=== PATIENT | male | born 1950 | race Caucasian/White ===

== ENCOUNTER 2018-08-24 09:15 | Inpatient (IN) | payer MEDICARE, BC ==
[2018-09-07] MEDS ORDERED: Sodium Chloride 0.9% 10 ML Syringe FLUSH PRN (00:01)
[2018-09-07] MEDS ORDERED: Lactated Ringers 1,000 ML IV SCH (00:01)
[2018-09-07] MEDS ORDERED: Lidocaine 1%/Sod Bicarbonate in NS 8.4% 1 ML Syringe IDERM PRN (00:01)
[2018-09-07] MEDS ORDERED: Acetaminophen 325 MG Tab PO SCH (06:00)
[2018-09-07] MEDS ORDERED: Pregabalin 25 MG Cap PO SCH (06:00)
[2018-09-07] MEDS ORDERED: oxyCODONE ER 10 MG TAB.ER PO ONE (07:00)
[2018-09-07] MEDS ORDERED: Cyclobenzaprine 10 MG Tab PO PRN (07:07)
[2018-09-07] MEDS ORDERED: Vancomycin 1 GM SDV ONE (07:08)
[2018-09-07] MEDS ORDERED: ceFAZolin 1 GM Vial ONE ×2 (07:08)
[2018-09-07] MEDS ORDERED: Morphine 2 MG/ML Syringe IVPUSH PRN (07:08)
[2018-09-07] MEDS ORDERED: Midazolam 1 MG/ML 2 ML SDV ONE (07:08)
[2018-09-07] MEDS ORDERED: Bupivacaine 0.25% 30 ML SDV ONE (07:08)
[2018-09-07] MEDS ORDERED: fentaNYL 100 MCG/2 ML SDV ONE (07:08)
[2018-09-07] MEDS ORDERED: Iodine/Sodium Iodide 2% Tincture 30 ML Bottle ONE (07:08)
[2018-09-07] MEDS ORDERED: Lactated Ringers 1,000 ML ONE (07:08)
[2018-09-07] MEDS ORDERED: Ondansetron 4 MG/2 ML SDV ONE (07:08)
[2018-09-07] MEDS ORDERED: Naloxone 0.4 MG/ML SDV IVPUSH PRN (07:08)
[2018-09-07] MEDS ORDERED: Ondansetron 4 MG/2 ML SDV IVPUSH PRN (07:08)
[2018-09-07] MEDS ORDERED: Propofol 200 MG/20 ML SDV ONE ×3 (07:08→09:22)
[2018-09-07] MEDS ORDERED: Sennosides 8.6 MG Tab PO PRN (07:08)
[2018-09-07] MEDS ORDERED: Bisacodyl 5 MG Tab PO PRN (07:08)
[2018-09-07] MEDS ORDERED: Magnesium Hydroxide 400 MG/5 ML Susp 30 ML Cup PO PRN (07:08)
--- NOTE | 2018-09-07 07:23 | PCM.PREANE ---
Preanesthetic Assessment - Anesthesia/Transfusion/Family Hx Anesthesia History: No Prior Anesthesia Family History of Anesthesia Reaction: No Transfusion History: No Prior Transfusion(s) - Review of Systems General: No Symptoms, Other (drinks 2 alcohol drinks per day) Pulmonary: No Symptoms Cardiovascular: Other (HTN) Gastrointestinal: No Symptoms Neurological: Other (chronic low back) Other: Reports: None - Physical Assessment NPO Status Date: 09/06/18 NPO Status Time: 19:00 Pulse: 65 O2 Sat by Pulse Oximetry: 100 Respiratory Rate: 16 Blood Pressure: 144/88 Vital Signs: Last Vital Signs Temp 36.2 C 09/07/18 07:00 Pulse 65 09/07/18 07:00 Resp 16 09/07/18 07:00 BP 144/88 H 09/07/18 07:00 Pulse Ox 100 09/07/18 07:00 Weight: 90.1 kg ASA Class: 2 Mental Status: Alert & Oriented x3 Airway Class: Mallampati = 2 Dentition: Reports: Normal Dentition Thyro-Mental Finger Breadths: 3 Mouth Opening Finger Breadths: 3 ROM/Head Extension: Full Lungs: Clear to Auscultation, Normal Respiratory Effort Cardiovascular: Regular Rate, Regular Rhythm - Lab Values: Laboratory Last Values MRSA (PCR) Negative 08/25/18 09:10 - Imaging/EKG Impressions: SR - Allergies Allergies/Adverse Reactions: Allergies Allergy/AdvReac Type Severity Reaction Status Date / Time No Known Allergies Allergy Verified 09/04/18 13:00 - Blood Blood Available: No Product(s) Available: None - Anesthesia Plan Pre-Op Medication Ordered: None - Acknowledgements Anesthesia Type Planned: Spinal Pt an Appropriate Candidate for the Planned Anesthesia: Yes Alternatives and Risks of Anesthesia Discussed w Pt/Guardian: Yes Pt/Guardian Understands and Agrees with Anesthesia Plan: Yes PreAnesthesia Questionnaire Cardiovascular History: Reports: High Cholesterol, Hypertension Respiratory History: Reports: None Gastrointestinal History: Reports: Other (See Below) Other Gastrointestinal History: abdominal pain and bloating Genitourinary History: Reports: Other (See Below) Other Genitourinary History: erectile dysfunction RESIDENTIAL APPRAISER History: Reports: None Musculoskeletal History: Reports: Other (See Below) Other Musculoskeletal History: low back pain, left hip and knee pain, right shoulder injury Neurological History: Reports: None Psychiatric History: Reports: None Endocrine/Metabolic History: Reports: None Hematologic History: Reports: None Immunologic History: Reports: None Oncologic (Cancer) History: Reports: None Dermatologic History: Reports: None - Past Surgical History Head Surgeries/Procedures: Reports: None HEENT Surgical History: Reports: Cataract Surgery, Oral Surgery Cardiovascular Surgical History: Reports: None Respiratory Surgical History: Reports: None GI Surgical History: Reports: None Female Surgical History: Reports: None Male Surgical History: Reports: None Endocrine Surgical History: Reports: None Neurological Surgical History: Reports: None Musculoskeletal Surgical History: Reports: None Oncologic Surgical History: Reports: None Dermatological Surgical History: Reports: None - SUBSTANCE USE Smoking Status *Q: Never Smoker Second Hand Smoke Exposure: No Days Per Week of Alcohol Use: 7 Number of Drinks Per Day: 2 Total Drinks Per Week: 14 Recreational Drug Use History: No - HOME MEDS Home Medications: Home Meds . [No Known Home Meds] 09/04/18 [History] - CURRENT (IN HOUSE) MEDS Current Meds: Current Medications Acetaminophen (Tylenol) 975 mg PO ONETIME HEIDE Stop: 09/07/18 12:00 Last Admin: 09/07/18 07:09 Dose: 975 mg Bisacodyl (Dulcolax) 5 mg PO DAILY PRN PRN Reason: Constipation Morphine Sulfate 8 mg/Epinephrine HCl 0.3 mg/Cefuroxime Sodium 750 mg/Ketorolac Tromethamine 30 mg/Sodium Chloride 27.9 ml 0 mg .XX ONETIME ONE Stop: 09/07/18 07:08 Cyclobenzaprine HCl (Flexeril) 10 mg PO BID PRN PRN Reason: Spasms Docusate Sodium (Colace) 100 mg PO BID HEIDE Famotidine (Pepcid) 20 mg PO Q12H [facility] Lactated Ringer's (Ringers, Lactated) 1,000 mls @ 125 mls/hr IV ASDIRECTED HEIDE Stop: 09/07/18 23:00 Cefazolin Sodium/Dextrose 2 gm (/ Premix) 50 mls @ 100 mls/hr IV Q8H HEIDE Stop: 09/07/18 23:44 Ketorolac Tromethamine (Toradol) 15 mg IVPUSH Q6H PRN PRN Reason: Pain Lidocaine/Sodium Bicarbonate (Buffered Lidocaine 1% In Ns 8.4%) 0.25 ml IDERM ONETIME PRN PRN Reason: Prior to IV Start Stop: 09/07/18 18:00 Magnesium Hydroxide (Milk Of Magnesia) 30 ml PO BID PRN PRN Reason: Constipation Morphine Sulfate (Morphine) 2 mg IVPUSH Q2H PRN PRN Reason: Breakthrough Pain Naloxone HCl (Narcan) 0.1 mg IVPUSH Q5M PRN PRN Reason: Oversedation Ondansetron HCl (Zofran) 4 mg IVPUSH Q6H PRN PRN Reason: Nausea/Vomiting Oxycodone/Acetaminophen (Percocet 325-5 Mg) 1 - 2 tab PO Q4H PRN PRN Reason: Pain Pregabalin (Lyrica) 50 mg PO ONETIME HEIDE Stop: 09/07/18 12:00 Last Admin: 09/07/18 07:09 Dose: 50 mg Rivaroxaban (Xarelto) 10 mg PO DAILY HEIDE Senna (Senna) 8.6 mg PO BID PRN PRN Reason: Constipation Sodium Chloride (Saline Flush) 10 ml FLUSH ASDIRECTED PRN PRN Reason: Keep Vein Open Stop: 09/07/18 18:00 Discontinued Medications Bupivacaine HCl (Marcaine 0.25%) Confirm Administered Dose 30 ml .ROUTE .STK- MED ONE Stop: 09/07/18 07:09 Cefazolin Sodium (Ancef) Confirm Administered Dose 2 gm .ROUTE .STK-MED ONE Stop: 09/07/18 07:09 Cefazolin Sodium (Ancef) Confirm Administered Dose 2 gm .ROUTE .STK-MED ONE Stop: 09/07/18 07:09 Fentanyl (Sublimaze) Confirm Administered Dose 100 mcg .ROUTE .STK-MED ONE Stop: 09/07/18 07:09 Lactated Ringer's (Ringers, Lactated) Confirm Administered Dose 1,000 mls @ as directed .ROUTE .STK-MED ONE Stop: 09/07/18 07:09 Iodine (Iodine 2% Mild Tincture) Confirm Administered Dose 30 ml .ROUTE .STK- MED ONE Stop: 09/07/18 07:09 Midazolam HCl (Versed 1 Mg/Ml) Confirm Administered Dose 2 mg .ROUTE .STK-MED ONE Stop: 09/07/18 07:09 Ondansetron HCl (Zofran) Confirm Administered Dose 4 mg .ROUTE .STK-MED ONE Stop: 09/07/18 07:09 Oxycodone HCl (Oxycontin) 10 mg PO ONETIME ONE Stop: 09/07/18 07:01 Last Admin: 09/07/18 07:08 Dose: 10 mg Propofol (Diprivan 20 Ml) Confirm Administered Dose 600 mg .ROUTE .STK-MED ONE Stop: 09/07/18 07:09 Tranexamic Acid (Cyklokapron) Confirm Administered Dose 1,000 mg .ROUTE .STK- MED ONE Stop: 09/07/18 07:09 Vancomycin HCl (Vancomycin) Confirm Administered Dose 1 gm .ROUTE .STK-MED ONE Stop: 09/07/18 07:09
[2018-09-07] MEDS ORDERED: Morphine PF 10 MG/10 ML SDV ONE (07:43)
[2018-09-07] MEDS ORDERED: Phenylephrine/Normal Saline 100 MCG/ML 10 ML Syringe ONE (08:50)
[2018-09-07] MEDS ORDERED: ePHEDrine/Normal Saline 25 MG/5 ML Syringe ONE (08:56)
[2018-09-07] MEDS ORDERED: Ketorolac 15 MG/ML SDV IVPUSH PRN (09:00)
[2018-09-07] MEDS: Morphine 8 MG, EPINEPHrine 0.3 MG, Cefuroxime 750 MG, Ketorolac 30 MG, Sodium Chloride ... ONE ×10 (09:49→13:09)
[2018-09-07] MEDS ORDERED: Ketorolac 30 MG/ML SDV ONE (09:55)
--- NOTE | 2018-09-07 10:25 | PCM.POSTAN ---
POST ANESTHESIA ASSESSMENT - MENTAL STATUS Mental Status: Alert, Oriented - VITAL SIGNS Pulse Rate: 66 SaO2: 97 Resp Rate: 17 Blood Pressure: 116/97 Temperature: 36.6 C - RESPIRATORY Respiratory Status: Respiratory Rate WNL, Airway Patent, O2 Saturation Stable, Supplemental Oxygen - CARDIOVASCULAR CV Status: Pulse Rate WNL, Blood Pressure Stable - GASTROINTESTINAL GI Status: No Symptoms - PAIN Pain Score: 0 - POST OP HYDRATION Hydration Status: Adequate & Stable
[2018-09-07] MEDS ORDERED: fentaNYL 100 MCG/2 ML SDV IVPUSH PRN (10:26)
--- NOTE | 2018-09-07 11:06 | CR ---
Pelvis and left hip: AP view of the pelvis was obtained as well as lateral view of the left hip. Comparison: Prior left hip exam of 09/10/17. Left hip prosthesis is seen. Components are aligned. Underlying bony structures are intact. Bony structures are osteopenic. Soft tissue air is noted. Severe degenerative change is noted within the right hip. Impression: 1. Satisfactory appearance of recently placed left hip prosthesis. 2. Severe degenerative change seen within the right hip. Diagnostic code #3
--- NOTE | 2018-09-07 11:29 | PCM.OPNOTE ---
- General Post-Op/Procedure Note Date of Surgery/Procedure: 09/07/18 Operative Procedure(s): left total hip arthroplasty Pre Op Diagnosis: left hip osteoarthritis Post-Op Diagnosis: Same Anesthesia Technique: Local, MAC, Spinal Primary Surgeon: Taiwo Sosa Anesthesia Provider: Laurie Purdy Weatherization Operations Manager: Carole Chambelrain Weatherization Operations Manager: Kristen Salmon EBTai in mLs: 250 Complications: None Condition: Good Free Text/Narrative:: Intake & Output 09/06/18 09/07/18 09/07/18 22:59 06:59 14:59 Intake Total 100 Balance 100 58 cup size 6 stem 36+0
[2018-09-07] MEDS: Famotidine 20 MG Tab PO SCH ×2 (13:09→18:39)
--- NOTE | 2018-09-07 16:22 | PCM.CONS ---
H&P History of Present Illness - General Date of Service: 09/07/18 Admit Problem/Dx: Admission Diagnosis/Problem Admission Diagnosis/Problem Osteoarthritis of hip Source of Information: Patient, Old Records, Provider, RN, RN Notes Reviewed History Limitations: Reports: No Limitations - History of Present Illness Initial Comments - Free Text/Narative: Dar Fonseca is a 68 yo male patient of Dr. Sosa who is post-operative day 0 of left TIAN. Hospital medicine was consulted for post-operative medical care of the following listed medical conditions. At this time he is resting comfortably in bed. Pain is controlled. He denies any chest pain, shortness of breath, palpitations, nausea, or vomiting. He carries a history of: Chronic low back pain, HLD, elevated BP without HTN diagnosis, Elevated blood sugars without diabetes diagnosis. He is a former smoker. He is a full code. His primary care provider is Reid Baer PA-C. Left Hip Pain Score (Numeric/FACES): 3 - Related Data Allergies/Adverse Reactions: Allergies Allergy/AdvReac Type Severity Reaction Status Date / Time No Known Allergies Allergy Verified 09/04/18 13:00 Home Medications: Home Meds . [No Known Home Meds] 09/04/18 [History] Past Medical History Cardiovascular History: Reports: High Cholesterol, Hypertension Respiratory History: Reports: Asthma Gastrointestinal History: Reports: Other (See Below) Other Gastrointestinal History: abdominal pain and bloating Genitourinary History: Reports: Other (See Below) Other Genitourinary History: erectile dysfunction INVENTORY AND PRICING ASSOCIATE History: Reports: None Musculoskeletal History: Reports: Other (See Below) Other Musculoskeletal History: low back pain, left hip and knee pain Neurological History: Reports: None Psychiatric History: Reports: None Endocrine/Metabolic History: Reports: None Hematologic History: Reports: None Immunologic History: Reports: None Oncologic (Cancer) History: Reports: None Dermatologic History: Reports: None - Past Surgical History Head Surgeries/Procedures: Reports: None HEENT Surgical History: Reports: Cataract Surgery, Oral Surgery Cardiovascular Surgical History: Reports: None Respiratory Surgical History: Reports: None GI Surgical History: Reports: None Male Surgical History: Reports: None Endocrine Surgical History: Reports: None Neurological Surgical History: Reports: None Musculoskeletal Surgical History: Reports: None Oncologic Surgical History: Reports: None Dermatological Surgical History: Reports: None Social & Family History - Tobacco Use Smoking Status *Q: Never Smoker Second Hand Smoke Exposure: No - Caffeine Use Caffeine Use: Reports: None - Alcohol Use Days Per Week of Alcohol Use: 7 Number of Drinks Per Day: 2 Total Drinks Per Week: 14 - Recreational Drug Use Recreational Drug Use: No H&P Review of Systems - Review of Systems: Review Of Systems: See Below General: Reports: No Symptoms. Denies: Fever, Chills HEENT: Reports: No Symptoms. Denies: Headaches, Sore Throat Pulmonary: Reports: No Symptoms. Denies: Shortness of Breath, Wheezing, Cough, Sputum Cardiovascular: Reports: No Symptoms. Denies: Chest Pain, Palpitations, Dyspnea on Exertion Gastrointestinal: Reports: No Symptoms. Denies: Abdominal Pain, Constipation, Diarrhea, Nausea, Vomiting Genitourinary: Reports: No Symptoms. Denies: Pain Musculoskeletal: Reports: No Symptoms Skin: Reports: No Symptoms. Denies: Cyanosis Psychiatric: Reports: No Symptoms. Denies: Confusion Neurological: Reports: No Symptoms. Denies: Pre-Existing Deficit Hematologic/Lymphatic: Reports: No Symptoms Immunologic: Reports: No Symptoms Exam - Exam Exam: See Below - Vital Signs Vital Signs: Last Vital Signs Temp 98.1 F 09/07/18 11:00 Pulse 62 09/07/18 14:31 Resp 19 09/07/18 11:00 BP 111/65 09/07/18 14:31 Pulse Ox 97 09/07/18 14:31 Weight: 198 lb - Exam Quality Assessment: DVT Prophylaxis. No: Supplemental Oxygen, Urinary Catheter General: Alert, Oriented, Cooperative. No: Mild Distress HEENT: Conjunctiva Clear, EACs Clear, EOMI, Hearing Intact, Mucosa Moist & Horine , Nares Patent, Posterior Pharynx Clear, PERRLA Neck: Supple, Trachea Midline Lungs: Clear to Auscultation, Normal Respiratory Effort Cardiovascular: Regular Rate, Regular Rhythm GI/Abdominal Exam: Normal Bowel Sounds, Soft, Non-Tender, No Distention, No Abnormal Bruit (Male) Exam: Deferred Rectal (Males) Exam: Deferred Back Exam: Normal Inspection, Full Range of Motion Extremities: No Pedal Edema, Normal Capillary Refill, Leg Pain, Limited Range of Motion, Other (Bandage in place on left leg. Bandage is dry and intact. Cooling pack in place. ) Peripheral Pulses: 2+: Radial (L), Radial (R), Dorsalis Pedis (L), Dorsalis Pedis (R) Skin: Warm, Dry, Intact Neurological: Cranial Nerves Intact (Grossly ) Neuro Extensive - Mental Status: Alert, Oriented x3 - Patient Data Lab Results Last 24 hrs: Laboratory Results - last 24 hr 09/07/18 Range/Units 07:01 Blood Type O NEGATIVE Gel Antibody Screen Negative Consult PN Assessment/Plan POD#: 0 Procedures: Procedures ASSAY OF PREALBUMIN (08/19/18) ASSAY OF SERUM ALBUMIN (08/19/18) COMPLETE CBC AUTOMATED (09/21/15) COMPLETE CBC W/AUTO DIFF WBC (08/19/18) COMPREHEN METABOLIC PANEL (04/02/16) DXA BONE DENSITY AXIAL (08/31/18) ELECTROCARDIOGRAM TRACING (08/19/18) GLYCOSYLATED HEMOGLOBIN TEST (09/10/17) LIPID PANEL (09/10/17) METABOLIC PANEL TOTAL CA (08/19/18) OFFICE/OUTPATIENT VISIT EST (08/19/18) OFFICE/OUTPATIENT VISIT EST (07/03/16) PROTHROMBIN TIME (08/19/18) ROUTINE VENIPUNCTURE (08/19/18) THROMBOPLASTIN TIME PARTIAL (08/19/18) X-RAY EXAM ABDOMEN 2 VIEWS (03/19/18) X-RAY EXAM CHEST 2 VIEWS (08/19/18) X-RAY EXAM HIP UNI 2-3 VIEWS (09/10/17) X-RAY EXAM KNEE 4 OR MORE (07/03/16) X-RAY EXAM L-S SPINE 2/3 VWS (07/03/16) X-RAY EXAM OF KNEE 3 (09/10/17) (1) S/P total hip arthroplasty SNOMED Code(s): 085218143692, 756082437045 Code(s): Z96.649 - PRESENCE OF UNSPECIFIED ARTIFICIAL HIP JOINT Priority: High Current Visit: Yes Qualifiers: Laterality: left Qualified Code(s): Z96.642 - Presence of left artificial hip joint (2) Osteoarthritis SNOMED Code(s): 712181705 Code(s): M19.90 - UNSPECIFIED OSTEOARTHRITIS, UNSPECIFIED SITE Priority: High Current Visit: Yes Qualifiers: Osteoarthritis location: hip Osteoarthritis type: primary Laterality: left Qualified Code(s): M16.12 - Unilateral primary osteoarthritis, left hip (3) HLD (hyperlipidemia) SNOMED Code(s): 26817294 Code(s): E78.5 - HYPERLIPIDEMIA, UNSPECIFIED Priority: Low Current Visit : No Qualifiers: Hyperlipidemia type: unspecified Qualified Code(s): E78.5 - Hyperlipidemia , unspecified (4) HTN (hypertension) SNOMED Code(s): 61572255 Code(s): I10 - ESSENTIAL (PRIMARY) HYPERTENSION Priority: Low Current Visit: No Qualifiers: Hypertension type: unspecified Qualified Code(s): I10 - Essential (primary ) hypertension (5) Chronic low back pain SNOMED Code(s): 223108058 Code(s): M54.5 - LOW BACK PAIN; G89.29 - OTHER CHRONIC PAIN Priority: Low Current Visit: No Qualifiers: Back pain laterality: unspecified Sciatica presence: unspecified whether sciatica present Qualified Code(s): M54.5 - Low back pain; G89.29 - Other chronic pain (6) Bradycardia following surgery SNOMED Code(s): 40843529 Code(s): I97.89 - OTH POSTPROC COMP AND DISORDERS OF THE CIRC SYS, NEC Priority: High Current Visit: Yes Problem List Initiated/Reviewed/Updated: Yes Plan: I/P: Acute: S/P left total hip arthroplasty - post-operative day 0 -DVT prophylaxis and pain management per primary care team -PT/OT -IS/RT -Monitor oxygen saturation -Titrate oxygen as needed -Home medications reviewed -Vital signs stable -Monitor labs -Pre-operative Hgb was 14.8 -Pre-operative GFR was >60 -Pre-operative BUN 19 -Pre-operative EKG showed NSR Osteoarthritis of left hip -Pain management per primary care team Bradycardia following surgery -HR in upper 40's to low 50's -Asymptomatic -Resolved on floor Chronic: Chronic low back pain HLD Elevated blood pressure without HTN diagnosis Elevated blood sugars without DM diagnosis Plan: CM for discharge planning GI prophylaxis Home medications as indicated Other orders as listed above Routine AM labs He is a full code. His PCP is Reid Baer PA-C Thank you for allowing us to participate in the care of this patient!! Requesting Provider: Dr. Sosa Date Consult Requested: 09/07/18 Patient History Reviewed: Yes Admission H&P Reviewed: Yes Time Spent (in minutes): 35
[2018-09-07] MEDS: ceFAZolin 2 GM in Premix Bag 1 BAG IV SCH (16:49)
[2018-09-07] MEDS: Acetaminophen/oxyCODONE 325-5 MG Tab PO PRN (18:38)
[2018-09-07] MEDS: Docusate Sodium 100 MG Cap PO SCH (21:15)
[2018-09-08] MEDS: Acetaminophen/oxyCODONE 325-5 MG Tab PO PRN (06:29)
[2018-09-08] MEDS: Famotidine 20 MG Tab PO SCH (06:29)
[2018-09-08] MEDS: Docusate Sodium 100 MG Cap PO SCH (08:16)
[2018-09-08] MEDS: ceFAZolin 2 GM in Premix Bag 1 BAG IV SCH ×3 (08:16)
--- NOTE | 2018-09-08 08:29 | PCM.SURGPN ---
- General Info Date of Service: 09/08/18 POD#: 1 Functional Status: Reports: Pain Controlled, Tolerating Diet, Ambulating, Urinating, Incentive Spirometry, Other (The pt remains with O2 use this morning. ) - Patient Data Vitals - Most Recent: Last Vital Signs Temp 99.0 F 09/08/18 08:04 Pulse 79 09/08/18 08:04 Resp 16 09/08/18 08:04 BP 117/70 09/08/18 08:04 Pulse Ox 99 09/08/18 08:04 Weight - Most Recent: 203 lb 12.8 oz I&O - Last 24 Hours: Intake & Output 09/07/18 09/08/18 09/08/18 22:59 06:59 14:59 Intake Total 1100 950 Output Total 200 850 Balance 900 100 Lab Results Last 24 Hrs: Laboratory Results - last 24 hr 09/08/18 09/08/18 Range/Units 04:12 04:12 WBC 5.73 (4.23-9.07) K/mm3 RBC 3.99 L (4.63-6.08) M/mm3 Hgb 12.8 L D (13.7-17.5) gm/L Hct 38.0 L (40.1-51.0) % MCV 95.2 H (79.0-92.2) fl MCH 32.1 (25.7-32.2) pg MCHC 33.7 (32.2-35.5) g/dl RDW Std Deviation 44.0 H (35.1-43.9) fL Plt Count 134 L (163-337) K/mm3 MPV 10.5 (9.4-12.3) fl Sodium 137 (136-145) mEq/L Potassium 4.5 (3.5-5.1) mEq/L Chloride 105 (98-107) mEq/L Carbon Dioxide 27 (21-32) mEq/L Anion Gap 9.5 (5-15) BUN 15 (7-18) mg/dL Creatinine 0.9 (0.7-1.3) mg/dL Est Cr Clr Drug Dosing 87.42 mL/min Estimated GFR (MDRD) > 60 (>60) mL/min BUN/Creatinine Ratio 16.7 (14-18) Glucose 105 (80-115) mg/dL Calcium 8.4 L (8.5-10.1) mg/dL Total Bilirubin 0.8 (0.2-1.0) mg/dL AST 36 (15-37) U/L ALT 30 (16-63) U/L Alkaline Phosphatase 59 (46-116) U/L Total Protein 5.5 L (6.4-8.2) g/dl Albumin 2.9 L (3.4-5.0) g/dl Globulin 2.6 gm/dL Albumin/Globulin Ratio 1.1 (1-2) Med Orders - Current: Current Medications Bisacodyl (Dulcolax) 5 mg PO DAILY PRN PRN Reason: Constipation Cyclobenzaprine HCl (Flexeril) 10 mg PO BID PRN PRN Reason: Spasms Docusate Sodium (Colace) 100 mg PO BID [facility] Last Admin: 09/08/18 08:16 Dose: 100 mg Famotidine (Pepcid) 20 mg PO Q12H [facility] Last Admin: 09/08/18 06:29 Dose: 20 mg Cefazolin Sodium/Dextrose 2 gm (/ Premix) 50 mls @ 100 mls/hr IV Q8H [facility] Stop: 09/08/18 08:29 Last Admin: 09/08/18 08:16 Dose: 100 mls/hr Ketorolac Tromethamine (Toradol) 15 mg IVPUSH Q6H PRN PRN Reason: Pain Last Admin: 09/08/18 00:01 Dose: 15 mg Magnesium Hydroxide (Milk Of Magnesia) 30 ml PO BID PRN PRN Reason: Constipation Morphine Sulfate (Morphine) 2 mg IVPUSH Q2H PRN PRN Reason: Breakthrough Pain Naloxone HCl (Narcan) 0.1 mg IVPUSH Q5M PRN PRN Reason: Oversedation Ondansetron HCl (Zofran) 4 mg IVPUSH Q6H PRN PRN Reason: Nausea/Vomiting Oxycodone/Acetaminophen (Percocet 325-5 Mg) 1 - 2 tab PO Q4H PRN PRN Reason: Pain Last Admin: 09/08/18 06:29 Dose: 2 tab Rivaroxaban (Xarelto) 10 mg PO DAILY [facility] Last Admin: 09/08/18 08:15 Dose: 10 mg Senna (Senna) 8.6 mg PO BID PRN PRN Reason: Constipation Discontinued Medications Acetaminophen (Tylenol) 975 mg PO ONETIME [facility] Stop: 09/07/18 12:00 Last Admin: 09/07/18 07:09 Dose: 975 mg Bupivacaine HCl (Marcaine 0.25%) Confirm Administered Dose 30 ml .ROUTE .STK- MED ONE Stop: 09/07/18 07:09 Last Admin: 09/07/18 09:48 Dose: 30 ml Cefazolin Sodium (Ancef) Confirm Administered Dose 2 gm .ROUTE .STK-MED ONE Stop: 09/07/18 07:09 Cefazolin Sodium (Ancef) Confirm Administered Dose 2 gm .ROUTE .STK-MED ONE Stop: 09/07/18 07:09 Last Admin: 09/07/18 09:44 Dose: 2 gm Morphine Sulfate 8 mg/Epinephrine HCl 0.3 mg/Cefuroxime Sodium 750 mg/Ketorolac Tromethamine 30 mg/Sodium Chloride 27.9 ml 0 mg .XX ONETIME ONE Stop: 09/07/18 07:08 Last Admin: 09/07/18 13:09 Dose: Not Given Ephedrine Sulfate (Ephedrine In Ns) Confirm Administered Dose 25 mg .ROUTE .STK- MED ONE Stop: 09/07/18 08:57 Fentanyl (Sublimaze) Confirm Administered Dose 100 mcg .ROUTE .STK-MED ONE Stop: 09/07/18 07:09 Fentanyl (Sublimaze) 50 mcg IVPUSH Q5M PRN PRN Reason: pain Stop: 09/07/18 19:00 Lactated Ringer's (Ringers, Lactated) 1,000 mls @ 125 mls/hr IV ASDIRECTED [facility] Stop: 09/07/18 23:00 Last Admin: 09/07/18 07:34 Dose: 125 mls/hr Lactated Ringer's (Ringers, Lactated) Confirm Administered Dose 1,000 mls @ as directed .ROUTE .STK-MED ONE Stop: 09/07/18 07:09 Iodine (Iodine 2% Mild Tincture) Confirm Administered Dose 30 ml .ROUTE .STK- MED ONE Stop: 09/07/18 07:09 Last Admin: 09/07/18 09:42 Dose: 18 ml Ketorolac Tromethamine (Toradol) Confirm Administered Dose 30 mg .ROUTE .STK- MED ONE Stop: 09/07/18 09:56 Lidocaine/Sodium Bicarbonate (Buffered Lidocaine 1% In Ns 8.4%) 0.25 ml IDERM ONETIME PRN PRN Reason: Prior to IV Start Stop: 09/07/18 18:00 Last Admin: 09/07/18 07:33 Dose: 0.25 ml Midazolam HCl (Versed 1 Mg/Ml) Confirm Administered Dose 2 mg .ROUTE .STK-MED ONE Stop: 09/07/18 07:09 Morphine Sulfate (Duramorph Pf) Confirm Administered Dose 10 mg .ROUTE .STK-MED ONE Stop: 09/07/18 07:44 Ondansetron HCl (Zofran) Confirm Administered Dose 4 mg .ROUTE .STK-MED ONE Stop: 09/07/18 07:09 Oxycodone HCl (Oxycontin) 10 mg PO ONETIME ONE Stop: 09/07/18 07:01 Last Admin: 09/07/18 07:08 Dose: 10 mg Phenylephrine HCl (Phenylephrine In Ns 100 Mcg/Ml) Confirm Administered Dose 1 mg .ROUTE .STK-MED ONE Stop: 09/07/18 08:51 Pregabalin (Lyrica) 50 mg PO ONETIME [facility] Stop: 09/07/18 12:00 Last Admin: 09/07/18 07:09 Dose: 50 mg Propofol (Diprivan 20 Ml) Confirm Administered Dose 600 mg .ROUTE .STK-MED ONE Stop: 09/07/18 07:09 Propofol (Diprivan 20 Ml) Confirm Administered Dose 200 mg .ROUTE .STK-MED ONE Stop: 09/07/18 09:13 Propofol (Diprivan 20 Ml) Confirm Administered Dose 200 mg .ROUTE .STK-MED ONE Stop: 09/07/18 09:23 Sodium Chloride (Saline Flush) 10 ml FLUSH ASDIRECTED PRN PRN Reason: Keep Vein Open Stop: 09/07/18 18:00 Tranexamic Acid (Cyklokapron) Confirm Administered Dose 1,000 mg .ROUTE .STK- MED ONE Stop: 09/07/18 07:09 Last Admin: 09/07/18 09:51 Dose: 1,000 mg Vancomycin HCl (Vancomycin) Confirm Administered Dose 1 gm .ROUTE .STK-MED ONE Stop: 09/07/18 07:09 Last Admin: 09/07/18 09:50 Dose: 1 gm - Exam Wound/Incisions: Dressing Dry and Intact Quality Assessment: Supplemental Oxygen General: Alert, Cooperative, No Acute Distress Lungs: Normal Respiratory Effort Extremities: Other (NVS intact for BLE. Guillaume's negative.) - Problem List Review Problem List Initiated/Reviewed/Updated: Yes - My Orders Last 24 Hours: Active Orders 24 hr Category Date Time Status Communication Order [RC] BID Care 09/07/18 13:30 Active Pulse Oximetry [RC] ASDIRECTED Care 09/07/18 10:26 Active Ready for Discharge [RC] PER UNIT ROUTINE Care 09/08/18 08:25 Ordered Regular Diet [DIET] Diet 09/07/18 Lunch Active Docusate Sodium [Colace] Med 09/07/18 21:00 Active 100 mg PO BID Ketorolac [Toradol] Med 09/07/18 09:00 Active 15 mg IVPUSH Q6H PRN Rivaroxaban [Xarelto] Med 09/08/18 09:00 Active 10 mg PO DAILY ceFAZolin [Ancef] 2 gm Med 09/07/18 16:00 Active Premix Bag 1 bag IV Q8H Pulse Oximetry Continuous Monitoring [OM.PC] Routine Oth 09/07/18 13:30 Active Medication Orders Bisacodyl (Dulcolax) 5 mg PO DAILY PRN PRN Reason: Constipation Cyclobenzaprine HCl (Flexeril) 10 mg PO BID PRN PRN Reason: Spasms Docusate Sodium (Colace) 100 mg PO BID [facility] Last Admin: 09/08/18 08:16 Dose: 100 mg Admin: 09/07/18 21:15 Dose: 100 mg Famotidine (Pepcid) 20 mg PO Q12H [facility] Last Admin: 09/08/18 06:29 Dose: 20 mg Admin: 09/07/18 18:39 Dose: 20 mg Admin: 09/07/18 13:09 Dose: Cefazolin Sodium/Dextrose 2 gm (/ Premix) 50 mls @ 100 mls/hr IV Q8H [facility] Stop: 09/08/18 08:29 Last Admin: 09/08/18 08:16 Dose: 100 mls/hr Infusion: 09/08/18 00:30 Dose: 100 mls/hr Admin: 09/08/18 00:00 Dose: 100 mls/hr Infusion: 09/07/18 17:19 Dose: 100 mls/hr Admin: 09/07/18 16:49 Dose: 100 mls/hr Ketorolac Tromethamine (Toradol) 15 mg IVPUSH Q6H PRN PRN Reason: Pain Last Admin: 09/08/18 00:01 Dose: 15 mg Magnesium Hydroxide (Milk Of Magnesia) 30 ml PO BID PRN PRN Reason: Constipation Morphine Sulfate (Morphine) 2 mg IVPUSH Q2H PRN PRN Reason: Breakthrough Pain Naloxone HCl (Narcan) 0.1 mg IVPUSH Q5M PRN PRN Reason: Oversedation Ondansetron HCl (Zofran) 4 mg IVPUSH Q6H PRN PRN Reason: Nausea/Vomiting Oxycodone/Acetaminophen (Percocet 325-5 Mg) 1 - 2 tab PO Q4H PRN PRN Reason: Pain Last Admin: 09/08/18 06:29 Dose: 2 tab Admin: 09/07/18 18:38 Dose: 2 tab Rivaroxaban (Xarelto) 10 mg PO DAILY [facility] Last Admin: 09/08/18 08:15 Dose: 10 mg Senna (Senna) 8.6 mg PO BID PRN PRN Reason: Constipation - Assessment Assessment (Free Text/Narrative):: POD#1 - left TIAN - Plan Plan (Free Text/Narrative):: 1. Discharge to home today if cleared by Hospitalist service and therapies. 2. Wean from use of O2 as able. 3. TIAN precautions. 4. Hgb 12.8. The pt's case was discussed with Dr. Sosa.
[2018-09-08] MEDS ORDERED: Rivaroxaban 10 MG Tab PO SCH (09:00)
--- NOTE | 2018-09-08 10:57 | PCM48HPAN ---
Post Anesthesia Note - EVALUATION WITHIN 48HRS OF ANESTHETIC Vital Signs in Normal Range: Yes Patient Participated in Evaluation: Yes Respiratory Function Stable: Yes Airway Patent: Yes Cardiovascular Function Stable: Yes Hydration Status Stable: Yes Pain Control Satisfactory: Yes Nausea and Vomiting Control Satisfactory: Yes Mental Status Recovered: Yes
--- NOTE | 2018-09-08 14:22 | PCM.CONSN ---
- General Info Date of Service: 09/08/18 Admission Dx/Problem (Free Text): Admission Diagnosis/Problem Admission Diagnosis/Problem Osteoarthritis of hip Subjective Update: Patient did well postoperatively. He did need 2 L nasal cannula overnight, but is now on room air. Denies any chest pain, shortness of breath, or fever. - Review of Systems General: Reports: No Symptoms HEENT: Reports: No Symptoms Pulmonary: Reports: No Symptoms Cardiovascular: Reports: No Symptoms Gastrointestinal: Reports: No Symptoms - Patient Data Vitals - Most Recent: Last Vital Signs Temp 99.0 F 09/08/18 08:04 Pulse 79 09/08/18 08:04 Resp 16 09/08/18 08:04 BP 117/70 09/08/18 08:04 Pulse Ox 99 09/08/18 08:04 Weight - Most Recent: 203 lb 12.8 oz I&O - Last 24 Hours: Intake & Output 09/07/18 09/08/18 09/08/18 22:59 06:59 14:59 Intake Total 1100 950 Output Total 200 850 Balance 900 100 Lab Results Last 24 Hours: Laboratory Results - last 24 hr 09/08/18 09/08/18 Range/Units 04:12 04:12 WBC 5.73 (4.23-9.07) K/mm3 RBC 3.99 L (4.63-6.08) M/mm3 Hgb 12.8 L D (13.7-17.5) gm/L Hct 38.0 L (40.1-51.0) % MCV 95.2 H (79.0-92.2) fl MCH 32.1 (25.7-32.2) pg MCHC 33.7 (32.2-35.5) g/dl RDW Std Deviation 44.0 H (35.1-43.9) fL Plt Count 134 L (163-337) K/mm3 MPV 10.5 (9.4-12.3) fl Sodium 137 (136-145) mEq/L Potassium 4.5 (3.5-5.1) mEq/L Chloride 105 (98-107) mEq/L Carbon Dioxide 27 (21-32) mEq/L Anion Gap 9.5 (5-15) BUN 15 (7-18) mg/dL Creatinine 0.9 (0.7-1.3) mg/dL Est Cr Clr Drug Dosing 87.42 mL/min Estimated GFR (MDRD) > 60 (>60) mL/min BUN/Creatinine Ratio 16.7 (14-18) Glucose 105 (80-115) mg/dL Calcium 8.4 L (8.5-10.1) mg/dL Total Bilirubin 0.8 (0.2-1.0) mg/dL AST 36 (15-37) U/L ALT 30 (16-63) U/L Alkaline Phosphatase 59 (46-116) U/L Total Protein 5.5 L (6.4-8.2) g/dl Albumin 2.9 L (3.4-5.0) g/dl Globulin 2.6 gm/dL Albumin/Globulin Ratio 1.1 (1-2) Med Orders - Current: Current Medications Discontinued Medications Acetaminophen (Tylenol) 975 mg PO ONETIME [facility] Stop: 09/07/18 12:00 Last Admin: 09/07/18 07:09 Dose: 975 mg Bisacodyl (Dulcolax) 5 mg PO DAILY PRN PRN Reason: Constipation Bupivacaine HCl (Marcaine 0.25%) Confirm Administered Dose 30 ml .ROUTE .STK- MED ONE Stop: 09/07/18 07:09 Last Admin: 09/07/18 09:48 Dose: 30 ml Cefazolin Sodium (Ancef) Confirm Administered Dose 2 gm .ROUTE .STK-MED ONE Stop: 09/07/18 07:09 Cefazolin Sodium (Ancef) Confirm Administered Dose 2 gm .ROUTE .STK-MED ONE Stop: 09/07/18 07:09 Last Admin: 09/07/18 09:44 Dose: 2 gm Morphine Sulfate 8 mg/Epinephrine HCl 0.3 mg/Cefuroxime Sodium 750 mg/Ketorolac Tromethamine 30 mg/Sodium Chloride 27.9 ml 0 mg .XX ONETIME ONE Stop: 09/07/18 07:08 Last Admin: 09/07/18 13:09 Dose: Not Given Cyclobenzaprine HCl (Flexeril) 10 mg PO BID PRN PRN Reason: Spasms Docusate Sodium (Colace) 100 mg PO BID [facility] Last Admin: 09/08/18 08:16 Dose: 100 mg Ephedrine Sulfate (Ephedrine In Ns) Confirm Administered Dose 25 mg .ROUTE .STK- MED ONE Stop: 09/07/18 08:57 Famotidine (Pepcid) 20 mg PO Q12H [facility] Last Admin: 09/08/18 06:29 Dose: 20 mg Fentanyl (Sublimaze) Confirm Administered Dose 100 mcg .ROUTE .STK-MED ONE Stop: 09/07/18 07:09 Fentanyl (Sublimaze) 50 mcg IVPUSH Q5M PRN PRN Reason: pain Stop: 09/07/18 19:00 Lactated Ringer's (Ringers, Lactated) 1,000 mls @ 125 mls/hr IV ASDIRECTED [facility] Stop: 09/07/18 23:00 Last Admin: 09/07/18 07:34 Dose: 125 mls/hr Lactated Ringer's (Ringers, Lactated) Confirm Administered Dose 1,000 mls @ as directed .ROUTE .STK-MED ONE Stop: 09/07/18 07:09 Cefazolin Sodium/Dextrose 2 gm (/ Premix) 50 mls @ 100 mls/hr IV Q8H [facility] Stop: 09/08/18 08:29 Last Admin: 09/08/18 08:16 Dose: 100 mls/hr Iodine (Iodine 2% Mild Tincture) Confirm Administered Dose 30 ml .ROUTE .STK- MED ONE Stop: 09/07/18 07:09 Last Admin: 09/07/18 09:42 Dose: 18 ml Ketorolac Tromethamine (Toradol) 15 mg IVPUSH Q6H PRN PRN Reason: Pain Last Admin: 09/08/18 00:01 Dose: 15 mg Ketorolac Tromethamine (Toradol) Confirm Administered Dose 30 mg .ROUTE .STK- MED ONE Stop: 09/07/18 09:56 Lidocaine/Sodium Bicarbonate (Buffered Lidocaine 1% In Ns 8.4%) 0.25 ml IDERM ONETIME PRN PRN Reason: Prior to IV Start Stop: 09/07/18 18:00 Last Admin: 09/07/18 07:33 Dose: 0.25 ml Magnesium Hydroxide (Milk Of Magnesia) 30 ml PO BID PRN PRN Reason: Constipation Midazolam HCl (Versed 1 Mg/Ml) Confirm Administered Dose 2 mg .ROUTE .STK-MED ONE Stop: 09/07/18 07:09 Morphine Sulfate (Morphine) 2 mg IVPUSH Q2H PRN PRN Reason: Breakthrough Pain Morphine Sulfate (Duramorph Pf) Confirm Administered Dose 10 mg .ROUTE .STK-MED ONE Stop: 09/07/18 07:44 Naloxone HCl (Narcan) 0.1 mg IVPUSH Q5M PRN PRN Reason: Oversedation Ondansetron HCl (Zofran) Confirm Administered Dose 4 mg .ROUTE .STK-MED ONE Stop: 09/07/18 07:09 Ondansetron HCl (Zofran) 4 mg IVPUSH Q6H PRN PRN Reason: Nausea/Vomiting Oxycodone HCl (Oxycontin) 10 mg PO ONETIME ONE Stop: 09/07/18 07:01 Last Admin: 09/07/18 07:08 Dose: 10 mg Oxycodone/Acetaminophen (Percocet 325-5 Mg) 1 - 2 tab PO Q4H PRN PRN Reason: Pain Last Admin: 09/08/18 06:29 Dose: 2 tab Phenylephrine HCl (Phenylephrine In Ns 100 Mcg/Ml) Confirm Administered Dose 1 mg .ROUTE .STK-MED ONE Stop: 09/07/18 08:51 Pregabalin (Lyrica) 50 mg PO ONETIME [facility] Stop: 09/07/18 12:00 Last Admin: 09/07/18 07:09 Dose: 50 mg Propofol (Diprivan 20 Ml) Confirm Administered Dose 600 mg .ROUTE .STK-MED ONE Stop: 09/07/18 07:09 Propofol (Diprivan 20 Ml) Confirm Administered Dose 200 mg .ROUTE .STK-MED ONE Stop: 09/07/18 09:13 Propofol (Diprivan 20 Ml) Confirm Administered Dose 200 mg .ROUTE .STK-MED ONE Stop: 09/07/18 09:23 Rivaroxaban (Xarelto) 10 mg PO DAILY [facility] Last Admin: 09/08/18 08:15 Dose: 10 mg Senna (Senna) 8.6 mg PO BID PRN PRN Reason: Constipation Sodium Chloride (Saline Flush) 10 ml FLUSH ASDIRECTED PRN PRN Reason: Keep Vein Open Stop: 09/07/18 18:00 Tranexamic Acid (Cyklokapron) Confirm Administered Dose 1,000 mg .ROUTE .STK- MED ONE Stop: 09/07/18 07:09 Last Admin: 09/07/18 09:51 Dose: 1,000 mg Vancomycin HCl (Vancomycin) Confirm Administered Dose 1 gm .ROUTE .STK-MED ONE Stop: 09/07/18 07:09 Last Admin: 09/07/18 09:50 Dose: 1 gm - Exam Quality Assessment: No: Supplemental Oxygen General: Alert, Oriented HEENT: Pupils Equal Neck: Supple Lungs: Clear to Auscultation, Normal Respiratory Effort Cardiovascular: Regular Rate, Regular Rhythm GI/Abdominal Exam: Normal Bowel Sounds, Soft, Non-Tender, No Distention Consult PN Assessment/Plan POD#: 1 Procedures: Procedures ASSAY OF PREALBUMIN (08/19/18) ASSAY OF SERUM ALBUMIN (08/19/18) COMPLETE CBC AUTOMATED (09/21/15) COMPLETE CBC W/AUTO DIFF WBC (08/19/18) COMPREHEN METABOLIC PANEL (04/02/16) DXA BONE DENSITY AXIAL (08/31/18) ELECTROCARDIOGRAM TRACING (08/19/18) GLYCOSYLATED HEMOGLOBIN TEST (09/10/17) LIPID PANEL (09/10/17) METABOLIC PANEL TOTAL CA (08/19/18) OFFICE/OUTPATIENT VISIT EST (08/19/18) OFFICE/OUTPATIENT VISIT EST (07/03/16) PROTHROMBIN TIME (08/19/18) ROUTINE VENIPUNCTURE (08/19/18) THROMBOPLASTIN TIME PARTIAL (08/19/18) X-RAY EXAM ABDOMEN 2 VIEWS (03/19/18) X-RAY EXAM CHEST 2 VIEWS (08/19/18) X-RAY EXAM HIP UNI 2-3 VIEWS (09/10/17) X-RAY EXAM KNEE 4 OR MORE (07/03/16) X-RAY EXAM L-S SPINE 2/3 VWS (07/03/16) X-RAY EXAM OF KNEE 3 (09/10/17) (1) HLD (hyperlipidemia) SNOMED Code(s): 73693423 Code(s): E78.5 - HYPERLIPIDEMIA, UNSPECIFIED Priority: Low Qualifiers: Hyperlipidemia type: unspecified Qualified Code(s): E78.5 - Hyperlipidemia , unspecified (2) HTN (hypertension) SNOMED Code(s): 22227231 Code(s): I10 - ESSENTIAL (PRIMARY) HYPERTENSION Priority: Low Qualifiers: Hypertension type: unspecified Qualified Code(s): I10 - Essential (primary ) hypertension (3) Osteoarthritis SNOMED Code(s): 412025965 Code(s): M19.90 - UNSPECIFIED OSTEOARTHRITIS, UNSPECIFIED SITE Priority: High Qualifiers: Osteoarthritis location: hip Osteoarthritis type: primary Laterality: left Qualified Code(s): M16.12 - Unilateral primary osteoarthritis, left hip (4) S/P total hip arthroplasty SNOMED Code(s): 993255653836, 262685665601 Code(s): Z96.649 - PRESENCE OF UNSPECIFIED ARTIFICIAL HIP JOINT Priority: High Qualifiers: Laterality: left Qualified Code(s): Z96.642 - Presence of left artificial hip joint Problem List Initiated/Reviewed/Updated: Yes Plan: S/P left total hip arthroplasty - post-operative day 1 -DVT prophylaxis and pain management per primary care team -PT/OT -IS/RT -Home medications reviewed -Vital signs stable -Monitor labs -Pre-operative Hgb was 14.8; POD 1 - 12.8 -Pre-operative GFR was >60; POD 1 - >60 -Pre-operative BUN 19; POD 1 - 15 -Pre-operative EKG showed NSR Hypoxemia overnight resolved. May consider sleep study as OP. Osteoarthritis of left hip -Pain management per primary care team Bradycardia following surgery -HR in upper 40's to low 50's -Asymptomatic -Resolved on floor Chronic: Chronic low back pain HLD Elevated blood pressure without HTN diagnosis Elevated blood sugars without DM diagnosis Plan: Medically stable to discharge home on home meds. He is a full code. His PCP is Reid Baer PA-C Thank you for allowing us to participate in the care of this patient!!
--- NOTE | 2018-09-09 09:27 | PCM.DCSUM1 ---
Discharge Summary - Hospital Course Brief History: Dar is a 68 yo male who underwent left TIAN with Dr. Sosa on . The procedure was completed under spinal anesthesia with MAC. The pt tolerated the procedure well and was admitted to the Medical-Surgical Unit. The pt received Ancef pascual-operatively. He participated in P.T. and O.T. and progressed well. He was allowed to WBAT and used a FWW for mobility. TIAN precautions were followed. The pt's surgical wound was dressed with a Mepilex dressing and remained clean and dry. On POD#1, the pt was started on Xarelto 10mg PO daily for VTE prophylaxis. The pt used TEDs and SCDs also. On POD#1, the pt's hemoglobin was 12.8. Medical management was provided by the Hospitalist service and the pt's hospital course was remarkable for need for O2 per nasal canula until POD#1. On POD#1, the pt was able to wean from use of supplemental oxygen and was deemed appropriate for discharge to home. - Discharge Data Discharge Date: 09/08/18 Discharge Disposition: Home, Self-Care 01 Condition: Good - Patient Summary/Data Operative Procedure(s) Performed: left total hip arthroplasty Consults: Consultations 09/07/18 07:07 OT Evaluation and Treatment [CONS] Routine PT Evaluation and Treatment [CONS] Routine 09/07/18 07:08 Consult to Physician [CONS] Routine - Patient Instructions Diet: Usual Diet as Tolerated Activity: Apply Ice, As Tolerated, Elevate Extremity, Full Weight Bearing Activity, Other: Follow the total hip precautions. Driving: Do Not Drive Showering/Bathing: May Shower Wound/Incision Care: Keep Operative Site/Wound Site Clean and Dry, Do NOT Change Dressing Notify Provider of: Fever, Increased Pain, Swelling and Redness, Drainage, Nausea and/or Vomiting Other/Special Instructions: Please get up and moving around EVERY HOUR while awake. This helps to prevent blood clots. Please use your walker and have help with mobility as needed. Take a short walk in your home every hour while awake. Please take the Xarelto blood thinner medication daily as directed. At home, please complete the exercises that you learned during the Hospital stay. Schedule for physical therapy. Follow the total hip precautions. Use the pain medication as needed. The medication may cause drowsiness and constipation. Contact your primary care provider for instructions if you are constipated. You may use a stool softener like docusate sodium or Colace 100mg twice daily and/or a laxative like Miralax daily for constipation. Increase your water and fiber intake while you are using the pain medication. Discontinue use of the pain medication as soon as able. Please do not use other medications that may cause drowsiness (other pain medications, anxiety pills, cold medications, sleeping pills, etc) while using the prescription pain medication. Do not use alcohol while using the pain medication. You may use acetaminophen or Tylenol for pain management, however, please ensure you are not using over 4000 mg or 4 grams of acetaminophen per day from all sources. Your pain medication has 325mg of acetaminophen per tablet. At this time, please do not use ibuprofen ( Motrin, Advil) or naproxen (Aleve) for pain management as you are using the Xarelto blood thinner. When the Xarelto course is completed in 35 days, you could use ibuprofen or naproxen for pain management (if this is allowed by your primary care provider). Wear the [place] hose during the day and you may remove these at night. Elevate the limb to decrease swelling. Place ice to the area often. Place a towel between your skin and the blue pad. Use the incentive spirometer often. Take deep breaths throughout the day. Please keep the dressing in place until follow-up. Notify the Clinic if the dressing becomes saturated. Increase your protein intake while you are healing. If you have diabetes, please closely monitor your blood sugars and notify your primary care provider with abnormal values. Elevated blood sugars increases the risk of infection. Call the Clinic with questions or concerns - [phone]. - Discharge Plan *PRESCRIPTION DRUG MONITORING PROGRAM REVIEWED*: No *COPY OF PRESCRIPTION DRUG MONITORING REPORT IN PATIENT RUBINA: No Prescriptions/Med Rec: Acetaminophen/oxyCODONE [Percocet 325-5 MG] 1 - 2 tab PO Q6H PRN #60 tablet PRN Reason: Pain Home Medications: Home Meds Acetaminophen/oxyCODONE [Percocet 325-5 MG] 1 - 2 tab PO Q6H PRN #60 tablet [Rx] Bisacodyl [Dulcolax] 5 mg PO DAILY PRN tablet 09/08/18 [Rx] Cyclobenzaprine [Flexeril] 10 mg PO BID PRN #30 tablet 09/08/18 [Rx] Docusate Sodium [Colace] 100 mg PO BID cap 09/08/18 [Rx] Famotidine [Pepcid] 20 mg PO Q12H tablet 09/08/18 [Rx] Magnesium Hydroxide [Milk of Magnesia] 30 ml PO BID PRN cup 09/08/18 [Rx] Sennosides [Senna] 8.6 mg PO BID PRN tablet 09/08/18 [Rx] Patient Handouts: Total Hip Replacement, Posterior, Care After Referrals: Carole Chamberlain PA-C [Physician Director Of Student Aid] - 09/15/18 8:30 am (Your follow up appointments are with Carole on 09/15/18 at 0830 am and 09/22/18 at 0830 am) - Discharge Summary/Plan Comment DC Time >30 min.: No - Patient Data Vitals - Most Recent: Last Vital Signs Temp 99.0 F 09/08/18 08:04 Pulse 79 09/08/18 08:04 Resp 16 09/08/18 08:04 BP 117/70 09/08/18 08:04 Pulse Ox 99 09/08/18 08:04 Weight - Most Recent: 203 lb 12.8 oz Med Orders - Current: Current Medications Discontinued Medications Acetaminophen (Tylenol) 975 mg PO ONETIME HEIDE Stop: 09/07/18 12:00 Last Admin: 09/07/18 07:09 Dose: 975 mg Bisacodyl (Dulcolax) 5 mg PO DAILY PRN PRN Reason: Constipation Bupivacaine HCl (Marcaine 0.25%) Confirm Administered Dose 30 ml .ROUTE .STK- MED ONE Stop: 09/07/18 07:09 Last Admin: 09/07/18 09:48 Dose: 30 ml Cefazolin Sodium (Ancef) Confirm Administered Dose 2 gm .ROUTE .STK-MED ONE Stop: 09/07/18 07:09 Cefazolin Sodium (Ancef) Confirm Administered Dose 2 gm .ROUTE .STK-MED ONE Stop: 09/07/18 07:09 Last Admin: 09/07/18 09:44 Dose: 2 gm Morphine Sulfate 8 mg/Epinephrine HCl 0.3 mg/Cefuroxime Sodium 750 mg/Ketorolac Tromethamine 30 mg/Sodium Chloride 27.9 ml 0 mg .XX ONETIME ONE Stop: 09/07/18 07:08 Last Admin: 09/07/18 13:09 Dose: Not Given Cyclobenzaprine HCl (Flexeril) 10 mg PO BID PRN PRN Reason: Spasms Docusate Sodium (Colace) 100 mg PO BID [facility] Last Admin: 09/08/18 08:16 Dose: 100 mg Ephedrine Sulfate (Ephedrine In Ns) Confirm Administered Dose 25 mg .ROUTE .STK- MED ONE Stop: 09/07/18 08:57 Famotidine (Pepcid) 20 mg PO Q12H [facility] Last Admin: 09/08/18 06:29 Dose: 20 mg Fentanyl (Sublimaze) Confirm Administered Dose 100 mcg .ROUTE .STK-MED ONE Stop: 09/07/18 07:09 Fentanyl (Sublimaze) 50 mcg IVPUSH Q5M PRN PRN Reason: pain Stop: 09/07/18 19:00 Lactated Ringer's (Ringers, Lactated) 1,000 mls @ 125 mls/hr IV ASDIRECTED [facility] Stop: 09/07/18 23:00 Last Admin: 09/07/18 07:34 Dose: 125 mls/hr Lactated Ringer's (Ringers, Lactated) Confirm Administered Dose 1,000 mls @ as directed .ROUTE .STK-MED ONE Stop: 09/07/18 07:09 Cefazolin Sodium/Dextrose 2 gm (/ Premix) 50 mls @ 100 mls/hr IV Q8H [facility] Stop: 09/08/18 08:29 Last Admin: 09/08/18 08:16 Dose: 100 mls/hr Iodine (Iodine 2% Mild Tincture) Confirm Administered Dose 30 ml .ROUTE .STK- MED ONE Stop: 09/07/18 07:09 Last Admin: 09/07/18 09:42 Dose: 18 ml Ketorolac Tromethamine (Toradol) 15 mg IVPUSH Q6H PRN PRN Reason: Pain Last Admin: 09/08/18 00:01 Dose: 15 mg Ketorolac Tromethamine (Toradol) Confirm Administered Dose 30 mg .ROUTE .STK- MED ONE Stop: 09/07/18 09:56 Lidocaine/Sodium Bicarbonate (Buffered Lidocaine 1% In Ns 8.4%) 0.25 ml IDERM ONETIME PRN PRN Reason: Prior to IV Start Stop: 09/07/18 18:00 Last Admin: 09/07/18 07:33 Dose: 0.25 ml Magnesium Hydroxide (Milk Of Magnesia) 30 ml PO BID PRN PRN Reason: Constipation Midazolam HCl (Versed 1 Mg/Ml) Confirm Administered Dose 2 mg .ROUTE .STK-MED ONE Stop: 09/07/18 07:09 Morphine Sulfate (Morphine) 2 mg IVPUSH Q2H PRN PRN Reason: Breakthrough Pain Morphine Sulfate (Duramorph Pf) Confirm Administered Dose 10 mg .ROUTE .STK-MED ONE Stop: 09/07/18 07:44 Naloxone HCl (Narcan) 0.1 mg IVPUSH Q5M PRN PRN Reason: Oversedation Ondansetron HCl (Zofran) Confirm Administered Dose 4 mg .ROUTE .STK-MED ONE Stop: 09/07/18 07:09 Ondansetron HCl (Zofran) 4 mg IVPUSH Q6H PRN PRN Reason: Nausea/Vomiting Oxycodone HCl (Oxycontin) 10 mg PO ONETIME ONE Stop: 09/07/18 07:01 Last Admin: 09/07/18 07:08 Dose: 10 mg Oxycodone/Acetaminophen (Percocet 325-5 Mg) 1 - 2 tab PO Q4H PRN PRN Reason: Pain Last Admin: 09/08/18 06:29 Dose: 2 tab Phenylephrine HCl (Phenylephrine In Ns 100 Mcg/Ml) Confirm Administered Dose 1 mg .ROUTE .STK-MED ONE Stop: 09/07/18 08:51 Pregabalin (Lyrica) 50 mg PO ONETIME [facility] Stop: 09/07/18 12:00 Last Admin: 09/07/18 07:09 Dose: 50 mg Propofol (Diprivan 20 Ml) Confirm Administered Dose 600 mg .ROUTE .STK-MED ONE Stop: 09/07/18 07:09 Propofol (Diprivan 20 Ml) Confirm Administered Dose 200 mg .ROUTE .STK-MED ONE Stop: 09/07/18 09:13 Propofol (Diprivan 20 Ml) Confirm Administered Dose 200 mg .ROUTE .STK-MED ONE Stop: 09/07/18 09:23 Rivaroxaban (Xarelto) 10 mg PO DAILY [facility] Last Admin: 09/08/18 08:15 Dose: 10 mg Senna (Senna) 8.6 mg PO BID PRN PRN Reason: Constipation Sodium Chloride (Saline Flush) 10 ml FLUSH ASDIRECTED PRN PRN Reason: Keep Vein Open Stop: 09/07/18 18:00 Tranexamic Acid (Cyklokapron) Confirm Administered Dose 1,000 mg .ROUTE .STK- MED ONE Stop: 09/07/18 07:09 Last Admin: 09/07/18 09:51 Dose: 1,000 mg Vancomycin HCl (Vancomycin) Confirm Administered Dose 1 gm .ROUTE .STK-MED ONE Stop: 09/07/18 07:09 Last Admin: 09/07/18 09:50 Dose: 1 gm
--- NOTE | 2018-09-09 10:19 | OR ---
DATE OF OPERATION: 09/07/2018 SURGEON: Taiwo Sosa MD OPERATION PERFORMED: Left total hip arthroplasty. PREOPERATIVE DIAGNOSIS: Left hip osteoarthrosis. POSTOPERATIVE DIAGNOSIS: Left hip osteoarthrosis. ANESTHESIA: Local MAC with spinal. ANESTHESIA PROVIDER: Laurie Purdy CRNA. WATCH SUPERVISOR: Carole Chamberlain PA-C, and Kristen Salmon LPN. ESTIMATED BLOOD LOSS: 250 mL. COMPLICATIONS: None. CONDITION: Stable. IMPLANTS: 1. [place] size 58 Tritanium II acetabular cup. 2. [place] size 6 Accolade II stem. 3. [place] size 36, +0 Biolox femoral head. DESCRIPTION OF PROCEDURE: The patient was identified in the preop holding area, where proper site was marked and identified by the surgeon. The patient was taken back to the operative theater, where after adequate anesthesia, the patient was placed in the right lateral decubitus position. Axillary roll was placed. All bony prominences were well padded. Pegs were then placed and well padded. The patient's gluteal fold was parallel to the floor. At this point, the left hip was then sterilely prepped and draped in the usual sterile fashion. OR time-out was performed. The patient received 2 g IV Ancef. Standard posterior incision was made centered over the greater trochanter. This was taken down to the IT band and gluteal fascia, which was incised along the incisional length. Charnley retractor was then placed. Short external rotators were identified, and takedown of short external rotators as well as capsulotomy was performed from the level of the piriformis down to the lesser trochanter. The hip was then dislocated and the neck cut was then completed and found to be adequate. Attention was turned to the acetabulum. Anterior and posterior acetabular retractors were placed. Resection of the remaining labrum was done both anterior and posteriorly as well as removal of the pulvinar. Starting with a 50 reamer, I was able to ream up to a 58, which was found to have good purchase. A 58 mm Tritanium II acetabular cup was then impacted in place in roughly 45 to 50 degrees of abduction and 20 to 30 degrees of anteversion. The 36 mm polyethylene liner was then impacted in place. Attention was turned to the femur. Box chisel was used out laterally. Starter awl was placed down the canal. Starting with 0 broach, I broached up to size 6 which was found to be rotationally and vertically stable. Trial implants were then placed. A 36, +0 was found to have adequate religious of leg lengths and was stable throughout the range of motion. I had to use a bone hook to dislocate the hip. At this time, the size 6 Accolade II stem was impacted in place along with a 36, +0 Biolox femoral head. The hip was then relocated and a #5 Ethibond suture was used for closure of the short external rotator capsule. 1 L dilute Betadine solution was then irrigated through the hip along with 3 L of pulse lavage irrigation with Ancef. Periarticular injection was then completed. Topical tranexamic acid and vancomycin powder placed. A #2 barbed suture was used for closure of the IT band and gluteal fascia, 2-0 Vicryl was used subcutaneously, and Prineo was used for the skin. The patient tolerated the procedure well and was sent to PACU in stable condition. SANTI /[id number]
== END 2018-09-08 10:58 | disposition home or self-care (01) | DRG 470 ==
LOC: JD.MS 09-07 06:42
PROVIDERS: ADMIT Orthopaedic Surgery; ATTEND Orthopaedic Surgery
PROC: 0SRB04Z Replacement of Left Hip Joint with Ceramic on Polyethylene Synthetic Substitute, Open Approach (ICD-10-PCS; principal; 2018-09-07)
DX: M16.12 Unilateral primary osteoarthritis, left hip (principal); I97.89 Other postprocedural complications and disorders of the circulatory system, not elsewhere classified; G89.29 Other chronic pain; M54.5 Low back pain; I10 Essential (primary) hypertension; E78.5 Hyperlipidemia, unspecified; J45.909 Unspecified asthma, uncomplicated; R09.02 Hypoxemia; Z98.49 Cataract extraction status, unspecified eye; Z87.891 Personal history of nicotine dependence
CPT/HCPCS: 01214; 36415; 73501-26-LT; 73501-LT; 80053; 85027; 86850; 86900; 86901; 87641; 94760; 94762; 97110-GP; 97116-GP; 97161-GP; 97165-GO; 97535-GO; A9270-GY; C1776; J0171; J0690; J0697; J1885; J2250; J2270; J2370; J2405; J2704; J3010; J3370; J3490; J7050; J7120

== ENCOUNTER 2024-06-23 06:45 | Day surgery (SDC) | payer MEDICARE, BC ==
[~2024-06-23 06:45] MED LIST: Sodium Chloride 0.9% 10 ML Syringe FLUSH PRN; Sodium Chloride 0.9% 10 ML Syringe FLUSH SCH
[2024-06-23] MEDS: Lactated Ringers 1,000 ML IV SCH (07:00)
[2024-06-23] MEDS ORDERED: Ondansetron 4 MG/2 ML SDV ONE (07:26)
[2024-06-23] MEDS ORDERED: Propofol 200 MG/20 ML SDV ONE ×2 (07:26→09:09)
[2024-06-23] MEDS ORDERED: Lidocaine 2% 5 ML SDV ONE (07:26)
[2024-06-23] MEDS: Acetaminophen 325 MG Tab PO ONE (07:28)
[2024-06-23] MEDS: oxyCODONE ER 10 MG TAB.ER PO ONE (07:29)
[2024-06-23] MEDS: Pregabalin 25 MG Cap PO ONE (07:29)
[2024-06-23] MEDS ORDERED: ceFAZolin 2 GM Vial ONE (08:27)
[2024-06-23] MEDS: Tranexamic Acid 1,000 MG/10 ML Vial ONE (09:06)
[2024-06-23] MEDS: Morphine 8 MG, EPINEPHrine 0.3 MG, Cefuroxime 750 MG, Ketorolac 30 MG, Sodium Chloride ... PRN (09:06)
[2024-06-23] MEDS: VANCOmycin 1 GM SDV ONE (09:06)
[2024-06-23] MEDS ORDERED: Ondansetron 4 MG/2 ML SDV IVPUSH PRN (09:35)
[2024-06-23] MEDS ORDERED: fentaNYL 100 MCG/2 ML SDV IVPUSH PRN (09:35)
[2024-06-23] MEDS ORDERED: HYDROmorphone 0.5 MG/0.5 ML Syringe IVPUSH PRN (09:35)
[2024-06-23] MEDS: oxyCODONE 5 MG Tab PO ONE (11:39)
== END 2024-06-28 13:10 | disposition home or self-care (01) ==
LOC: JD.SDS 06:45
PROVIDERS: ATTEND Orthopaedic Surgery
DX: M16.11 Unilateral primary osteoarthritis, right hip (principal); I10 Essential (primary) hypertension; E78.2 Mixed hyperlipidemia; Z79.899 Other long term (current) drug therapy
CPT/HCPCS: 0055T; 27130; 36415; 73501; 86850; 86900; 86901; 97110; 97116; 97161; A9270; C1713; C1776; J0171; J0690; J0697; J1885; J2003; J2272; J2405; J2704; J7120; J3490